=== PATIENT | male | born 1950 | race Caucasian/White ===

== ENCOUNTER 2018-09-27 13:06 | Outpatient (CLI) | payer MEDICARE, MEDICAID ==
[~2018-09-27 13:06] MED LIST: FLO0.4C PO
== END 2018-09-27 23:59 | disposition home or self-care (01) ==
LOC: RAD 13:06
PROVIDERS: ATTEND General Practice
DX: R13.14 Dysphagia, pharyngoesophageal phase (principal); K21.9 Gastro-esophageal reflux disease without esophagitis; Z87.891 Personal history of nicotine dependence
CPT/HCPCS: 74230